=== PATIENT | female | born 1960 | race Caucasian/White ===

== ENCOUNTER 2018-02-13 09:59 | Outpatient (CLI) | payer MEDICARE ==
--- NOTE | 2018-02-13 12:30 | XRAY Report ---
Reason: PAIN IN RIGHT FOOT Procedure Date: 02/13/2018 Accession Number: [id number] / [id number] Procedure: XR - Foot 3 View RT CPT Code: FULL RESULT: EXAM: RIGHT FOOT RADIOGRAPHY EXAM DATE: 02/13/2018 11:09 AM. CLINICAL HISTORY: PAIN IN RIGHT FOOT. COMPARISON: None. TECHNIQUE: 3 views. FINDINGS: Bones: Small plantar heel spur. No fractures or bone lesions. Joints: Normal. No subluxations. Soft Tissues: Normal. No soft tissue swelling. IMPRESSION: Negative for fracture RADIA
== END 2018-02-13 10:00 | disposition home or self-care (01) ==
LOC: DI 09:59
PROVIDERS: ATTEND Physician Assistant
DX: M79.671 Pain in right foot (principal)

== ENCOUNTER 2020-09-27 16:18 | Outpatient (CLI) | payer OTHER ==
--- NOTE | 2020-09-27 19:15 | XRAY Report ---
PROCEDURE: Lumbar Spine 2 View INDICATIONS: LUMBAR RADICULOPATHY TECHNIQUE: 2 views of the lumbar spine were acquired. COMPARISON: None. FINDINGS: Bones: 5 [id number] vertebrae are present. There is normal bony alignment. No vertebral body compression fractures. No suspicious bony lesions. Mild convex right lumbar scoliosis noted. Mild s clerotic facet joints noted at L4-5 and L5-S1 Soft tissues: Overlying bowel gas pattern is normal. No suspicious soft tissue calcifications. IMPRESSION: Mild degenerative disc scoliosis and arthropathy in the lower lumbar spine. No fracture or malalignment. Reviewed by: Matthew Sheldon MD on 09/27/2020 6:14 PM MEMO Approved by: Matthew Sheldon MD on 09/27/2020 6:14 PM MEMO Station ID: [id number]
== END 2020-09-27 16:19 | disposition home or self-care (01) ==
LOC: DI.N 16:18
PROVIDERS: ATTEND Family Medicine
DX: M47.816 Spondylosis without myelopathy or radiculopathy, lumbar region (principal); M47.817 Spondylosis without myelopathy or radiculopathy, lumbosacral region; M41.86 Other forms of scoliosis, lumbar region

== ENCOUNTER 2021-01-20 07:28 | Outpatient (CLI) | payer OTHER ==
--- NOTE | 2021-01-20 09:27 | Ultrasound Report ---
PROCEDURE: Pelvic w/Transvaginal INDICATIONS: LEFT LOWER ABD PAIN, PAIN AT PFANNENSTIEL INCISION TECHNIQUE: Real-time scanning was performed of the pelvic organs, with image documentation. Additional endovagi nal scanning was necessary due to incomplete visualization of the adnexal and endometrial structures by transabdominal scanning. COMPARISON: None. FINDINGS: No pathologic free abdominal or pelvic fluid. Uterus: Surgically absent. Ovaries: Surgically absent. Other findings: Unremarkable appearance of the vaginal cuff. No free fluid or adnexal masses were vis ualized. IMPRESSION: Negative sonographic evaluation of the pelvis. Reviewed by: Jerome Merrill on 01/20/2021 8:26 AM MEMO Approved by: Jerome Merrill on 01/20/2021 8:26 AM MEMO Station ID: [id number]
== END 2021-01-20 07:29 | disposition home or self-care (01) ==
LOC: DI 07:28
PROVIDERS: ATTEND Family Medicine
DX: R10.32 Left lower quadrant pain (principal)

== ENCOUNTER 2021-02-19 09:34 | Outpatient (CLI) | payer MEDICARE ==
[2021-02-19] MEDS ORDERED: IOVERSOL 320 100 ML VIAL IVP ONE ×2 (09:45→11:32)
[2021-02-19] MEDS ORDERED: IOVERSOL 320 50 ML VIAL ONE (09:45)
[2021-02-19] MEDS ORDERED: IOVERSOL 320 50 ML VIAL PO ONE (11:32)
--- NOTE | 2021-02-19 12:49 | CT Report ---
PROCEDURE: Abdomen/Pelvis W INDICATIONS: LEFT SIDED ABDOMINAL PAIN, CHANGE IN BOWEL HABIT CONTRAST: IV CONTRAST: Optiray 320 ml: 100 PO CONTRAST: Optiray 320 ml50 TECHNIQUE: After the administration of oral and intravenous contrast, 5 mm thick sections acquired from the diap hragms to the symphysis. 5 mm thick coronal and sagittal reformats were acquired. For radiation dos e reduction, the following was used: automated exposure control, adjustment of mA and/or kV accordin g to patient size. COMPARISON: 07/14/2015 FINDINGS: Image quality: Excellent. ABDOMEN: Lung bases: Lung bases are clear. Heart size is normal. Solid organs: Liver and spleen are normal in size and enhancement. Mild diffuse hepatic steatosis. Gallbladder is unremarkable. Biliary system is non dilated. Pancreas enhances normally. No adrenal nodules. Kidneys demonstrate normal size and enhancement, without hydronephrosis. Peritoneum and bowel: Bowel loops demonstrate normal wall thickness and caliber. No free fluid or a ir. Mild sigmoid diverticulosis without evidence of diverticulitis. Nodes and vessels: No retroperitoneal or mesenteric adenopathy by size criteria. Aorta and inferior vena cava are normal in size. Miscellaneous: No ventral hernias. PELVIS: Genitourinary: Bladder wall thickness is normal. Miscellaneous: No inguinal hernias or adenopathy. Uterus is surgically absent. Bones: No suspicious bony lesions. No vertebral body compression fractures. IMPRESSION: 1. No evidence of acute abdominal process. 2. Mild sigmoid diverticulosis. 3. Mild hepatic steatosis. Reviewed by: Yassine Wright MD on 02/19/2021 12:47 PM PDT Approved by: Yassine Wright MD on 02/19/2021 12:47 PM PDT Station ID: [id number]
== END 2021-02-19 09:35 | disposition home or self-care (01) ==
LOC: DI 09:34
PROVIDERS: ATTEND Family Medicine
DX: R10.9 Unspecified abdominal pain (principal); R19.4 Change in bowel habit; K76.0 Fatty (change of) liver, not elsewhere classified; K57.30 Diverticulosis of large intestine without perforation or abscess without bleeding
CPT/HCPCS: 74177; Q9967

== ENCOUNTER 2021-05-11 12:00 | Emergency (ER) | payer MEDICARE, OTHER ==
[2021-05-11] MEDS ORDERED: SODIUM CHLORIDE 0.9% 1,000 ML IV STA (12:25)
--- NOTE | 2021-05-11 12:27 | ED Physician Documentation ---
History of Present Illness - Stated complaint Stated Complaint: WEAKNESS/CONFUSION - Chief complaint Chief Complaint: Trauma Hd/Nk - Additonal information Additional information: 60-year-old female presents the emergency department for evaluation of right- sided facial trauma, headache and reported confusion. She was working with her horse on Friday afternoon ( 3 days ago) when she was accidentally butted in the head from him. She did not lose consciousness. She is not anticoagulated. However since the accident she reports that she has had a headache has felt sleepy and tired. She often feels off balance. Some nausea but no vomiting. No history of similar in the past. She reports her's herself as a diabetic who is not yet taking medications or checking her sugars. Review of Systems Constitutional: denies: Fever, Chills Eyes: denies: Loss of vision Ears: reports: Reviewed and negative Nose: reports: Reviewed and negative Throat: reports: Reviewed and negative Cardiac: reports: Reviewed and negative Respiratory: reports: Reviewed and negative GI: reports: Nausea : denies: Dysuria, Frequency, Hesitancy Skin: reports: Other (Circumferential bruising of the right eye orbit). denies: Rash Musculoskeletal: denies: Neck pain Neurologic: reports: Confused, Headache, Head injury. denies: Numbness, Syncope, Seizure, LOC PD PAST MEDICAL HISTORY - Past Medical History Cardiovascular: High cholesterol - Past Surgical History Past Surgical History: Yes /RENTAL REPRESENTATIVE: Hysterectomy - Allergies Allergies/Adverse Reactions: Allergies Allergy/AdvReac Type Severity Reaction Status Date / Time Cephalosporins Allergy Anaphylaxis Verified 05/11/21 12:10 levofloxacin [From Levaquin] Allergy Anaphylaxis Verified 05/11/21 12:10 - Social History Does the pt smoke?: No Smoking Status: Never smoker Does the pt drink ETOH?: No Does the pt have substance abuse?: Yes - Immunizations Immunizations are current?: Yes - POLST Patient has POLST: No PD ED PE EXPANDED - General General: Alert, No acute distress, Well developed/nourished - HEENT HEENT: PERRL, Ears normal, Moist mucous membranes, Other (Ecchymosis of the right orbit and eye. Extraocular movements intact. No tenderness with palpation of the eye.) - Neck Neck: Supple w/out meningeal sx, No tenderness. No: Adenopathy - Cardiac Cardiac: Regular Rate, Radial strong equal, Femoral strong equal, Cap refill < 2 sec. No: Murmur Present - Respiratory Respiratory: Clear to ausultation kvng. No: Distress, Labored - Abdomen Abdomen: Normal Bowel sounds. No: Tender to palpation - Neuro Neuro: Alert and Oriented X 3, CNII-XII intact, Cerebellar nl, Normal finger nose, Normal speech. No: Nystagmus - GCS Verbal: Oriented Results - Vitals Vitals: Vital Signs - 24 hr 05/11/21 05/11/21 12:04 12:42 Temperature 36.2 C L Heart Rate 60 67 Respiratory 16 17 Rate Blood Pressure 133/86 H 129/80 O2 Saturation 98 100 Oxygen O2 Source Room air - Labs Labs: Laboratory Tests 05/11/21 05/11/21 12:28 12:28 WBC 5.7 RBC 4.14 L Hgb 12.7 Hct 38.7 MCV 93.5 MCH 30.7 MCHC 32.8 RDW 13.8 Plt Count 231 MPV 8.6 Neut # (Auto) 2.4 Lymph # (Auto) 2.3 Izard # (Auto) 0.7 Eos # (Auto) 0.1 Baso # (Auto) 0.0 Absolute Nucleated RBC 0.00 Nucleated RBC % 0.0 Sodium 136 Potassium 4.3 Chloride 102 Carbon Dioxide 25 Anion Gap 9.0 BUN 24 H Creatinine 0.6 Estimated GFR (MDRD) 102 Glucose 116 H Calcium 9.0 Total Bilirubin 0.5 AST 21 ALT 34 Alkaline Phosphatase 51 Total Protein 6.7 Albumin 3.9 Globulin 2.8 Albumin/Globulin Ratio 1.4 Lipase 34 - Rads (name of study) maxillo facial CT Radiology: Final report received CT head Radiology: Final report received (No acute intracranial finding. Right paranasal soft tissue swelling.) PD MEDICAL DECISION MAKING - ED course Complexity details: reviewed results, re-evaluated patient, d/w patient ED course: 60-year-old female presents emergency department for evaluation of headache dizziness and feeling fatigue as well as nausea after her horse struck her in the head 3 days ago. She does have some generalized ecchymosis to the right eye. She presents with no focal neuro deficits and had a normal gait. Vital signs were unrevealing. Screening labs showed no worrisome findings despite her reported history of uncontrolled diabetes. CT maxillofacial of the head as well as CT of the head did not show any findings of occult traumatic brain injury or orbital nasal bone fracture. Discussed that her symptoms are most consistent with a concussion. Encouraged gentle hydration and plenty of rest. She is a moderate alcohol user. I advised her to abstain from alcohol if she can safely do so. Emergent return precautions were discussed. Departure - Departure Disposition: 01 Home, Self Care Clinical Impression: Concussion Qualifiers: Encounter type: initial encounter Loss of consciousness presence/duration: without LOC Qualified Code(s): S06.0X0A - Concussion without loss of consciousness, initial encounter Facial contusion Qualifiers: Encounter type: initial encounter Qualified Code(s): S00.83XA - Contusion of other part of head, initial encounter Condition: Stable Record reviewed to determine appropriate education?: Yes Instructions: ED Head Injury Closed, ED Concussion Follow-Up: Jose Alberto Booth DO [Primary Care Provider] - Comments: Lisa were seen in the emergency department today for evaluation of headache nausea and feeling fatigued after your horse accidentally hit you in the head. We did do a CT of your head that does not show any signs of bruising or bleeding on a within the brain. The bones of your head are also without fracture. I suspect that you likely have a concussion. Most patients with concussion will heal well by allowing their brain time to rest. This means focusing on at least 8 hours of sleep at night. Avoidance of stimulants such as caffeine or alcohol if able. I do recommend Tylenol ibuprofen for discomfort. If at any point you have worsening symptoms, uncontrolled vomiting, high fevers, slurred speech or facial droop then please return immediately to the ER for second evaluation. Please discuss this ED visit with your primary care provider as soon as possible.
[2021-05-11 12:36] LABS: BASOPHILS % (AUTO) 0.5 %; EOSINOPHILS # (AUTO) 0.1 10^3/uL (0.0-0.7); EOSINOPHILS % (AUTO) 2.1 %; HCT - HEMATOCRIT 38.7 % (37.0-47.0); HGB - HEMOGLOBIN 12.7 g/dL (12.0-16.0); LYMPHOCYTES # (AUTO) 2.3 10^3/uL (1.5-3.5); LYMPHOCYTES % (AUTO) 40.9 %; MEAN CORPUSCULAR HEMOGLOBIN 30.7 pg (27.0-31.0); MEAN CORPUSCULAR HGB CONC 32.8 g/dL (32.0-36.0); MEAN CORPUSCULAR VOLUME 93.5 fL (81.0-99.0); MEAN PLATELET VOLUME 8.6 fL (7.9-10.8); MONOCYTES # (AUTO) 0.7 10^3/uL (0.0-1.0); MONOCYTES % (AUTO) 13.1 %; NEUTROPHILS # (AUTO) 2.4 10^3/uL (1.5-6.6); PLT - PLATELET COUNT 231 10^3/uL (130-450); RED BLOOD COUNT 4.14 10^6/uL (4.20-5.40); RED CELL DISTRIBUTION WIDTH 13.8 % (12.0-15.0); WHITE BLOOD COUNT 5.7 x10^3/uL (4.8-10.8)
[2021-05-11] MEDS ORDERED: ONDANSETRON 4 MG/2 ML VIAL IVP STA (12:50)
[2021-05-11 12:55] LABS: ALBUMIN 3.9 g/dL (3.2-5.5); ALBUMIN/GLOBULIN RATIO 1.4 (1.0-2.2); BILIRUBIN,TOTAL 0.5 mg/dL (0.2-1.0); CREATININE 0.6 mg/dL (0.4-1.0); POTASSIUM 4.3 mmol/L (3.5-5.0); TOTAL PROTEIN 6.7 g/dL (6.7-8.2)
--- NOTE | 2021-05-11 14:11 | CT Report ---
PROCEDURE: HEAD WO INDICATIONS: hit in head by horse; r/o ICH TECHNIQUE: Noncontrast 4.5 mm thick angled axial sections acquired from the foramen magnum to the vertex. For r adiation dose reduction, the following was used: automated exposure control, adjustment of mA and/or kV according to patient size. COMPARISON: None. FINDINGS: Image quality: Excellent. CSF spaces: Basal cisterns are patent. No extra-axial fluid collections. Ventricles are normal in size and shape. Brain: No midline shift. No intracranial masses or hemorrhage. Ca-white matter interface is norm al. Skull and face: Calvarium and visualized facial bones are intact, without suspicious lesions. Right periorbital soft tissue swelling, partially visualized. Sinuses: Visualized sinuses and mastoids are clear. IMPRESSION: No acute intracranial finding. Right paranasal soft tissue swelling. Reviewed by: Fam De La O MD on 05/11/2021 2:10 PM PST Approved by: Fam De La O MD on 05/11/2021 2:10 PM PST Station ID: [id number]
--- NOTE | 2021-05-11 14:13 | CT Report ---
PROCEDURE: MAXILLOFACIAL WO INDICATIONS: right eye bruising; r/o fx TECHNIQUE: Noncontrast 1.5 mm thick axial images acquired from the mandible through the frontal sinuses, with co pepito and sagittal reformatting. For radiation dose reduction, the following was used: automated ex posure control, adjustment of mA and/or kV according to patient size. COMPARISON: None. FINDINGS: Image quality: Excellent. Bones and teeth: Orbital ceron are intact. Sinus ceron show no fracture or deformity. Nasal bones and septum are intact. Visualized portions of the mandible demonstrate no fractures or subluxation. Zygomatic arches are intact. Pterygoid plates are intact. Visualized portions of the skull base an d auditory canals are intact. Sinuses: Paranasal sinuses are aerated, without fluid levels, mucosal thickening, or mucoceles. Mas toid air cells are aerated. Soft tissues: Right periorbital soft tissue swelling. No other edema, masses, or fluid collections. No enlarged lymph nodes. No soft tissue lacerations or debris. Vascular: Visualized vascular structures appear normal in the absence of contrast. Bony vascular fo ramina and canals are intact. IMPRESSION: Right periorbital soft tissue swelling. No orbital wall fracture. No evidence of ocular injury. Reviewed by: Fam De La O MD on 05/11/2021 2:12 PM PST Approved by: Fam De La O MD on 05/11/2021 2:12 PM PST Station ID: [id number]
[2021-05-11 14:42] VITALS: BP 129/81
== END 2021-05-11 14:47 | disposition home or self-care (01) ==
LOC: ED 12:00
DX: S06.0X0A Concussion without loss of consciousness, initial encounter (principal); S00.83XA Contusion of other part of head, initial encounter; W55.12XA Struck by horse, initial encounter
CPT/HCPCS: 36415; 80053; 83690; 85025; 96374; 99282

== ENCOUNTER 2021-06-18 13:29 | Outpatient (CLI) | payer MEDICARE ==
--- NOTE | 2021-06-18 13:54 | XRAY Report ---
PROCEDURE: Finger(s) RT INDICATIONS: RING FINGER TRIGGER/PAIN TECHNIQUE: AP hand, 2 views of the fourth finger(s) acquired. COMPARISON: None FINDINGS: Bones: No fractures or dislocations. Osteoarthritic changes are noted throughout interphalangeal timmy ints with joint space narrowing and subchondral sclerosis. Subtle radiolucency involving dorsal aspec t of fourth middle phalangeal base is seen. No suspicious bony lesions. Soft tissues: No suspicious soft tissue calcifications. IMPRESSION: Fourth digit osteoarthritis. No fracture or dislocation. Subtle radiolucency involving dorsal aspect of fourth middle phalangeal base, subtle erosion secondary to inflammatory arthropathy cannot be excl uded. Reviewed by: Rafal Patten MD on 06/18/2021 1:52 PM PST Approved by: Rafal Patten MD on 06/18/2021 1:52 PM PST Station ID: [id number]
== END 2021-06-18 13:30 | disposition home or self-care (01) ==
LOC: DI.WOS 13:29
PROVIDERS: ATTEND Physician Assistant
DX: M65.341 Trigger finger, right ring finger (principal); M19.041 Primary osteoarthritis, right hand

== ENCOUNTER 2022-05-01 08:00 | Outpatient (CLI) | payer MEDICARE | END 2022-05-01 23:59 | disposition home or self-care (01) | LOC: LAB.N 08:00 | PROVIDERS: ATTEND Registered Nurse | DX: K13.0 Diseases of lips (principal) | CPT/HCPCS: 87070; 87205 ==

== ENCOUNTER 2022-06-05 11:24 | Outpatient (CLI) | payer MEDICARE ==
--- NOTE | 2022-06-10 12:10 | Mammography Report ---
BILATERAL DIGITAL SCREENING MAMMOGRAM 3D/2D: 06/05/2022 CLINICAL: Family history of breast cancer. Routine screening. Comparison is made to exam dated: 10/30/2010 mammogram - [facility]. Both breasts are heterogeneously dense, which may obscure small masses (category c / 51-75% glandular tissue). There is a focal asymmetry in the right breast at 12 o'clock middle depth. No other significant masses, calcifications, or other findings are seen in either breast. IMPRESSION: INCOMPLETE: NEEDS ADDITIONAL IMAGING EVALUATION The focal asymmetry in the right breast is indeterminate. Additional views with possible ultrasound are recommended. Based on Tyrer-Cuzick model (a risk assessment model), the patient's lifetime risk is 24.7% and her 1 0 year risk is 10.5%. If a patient has an elevated risk, a more comprehensive evaluation should be co nsidered and/or a referral to a genetic counselor. The [place] [employer], [employer], and NCCN Guidelines advise the consideration of Breast MRI as an adjunct to screening mammo graphy in patients whose "Lifetime risk to develop breast cancer" is 20% or higher. This exam was interpreted at Station ID: [id number]. NOTE: For mammograms, a report in lay terms will be sent to the patient. Approximately 15% of breast malignancies will not be visualized mammographically. In the management of a palpable breast mass, a negative mammogram must not discourage biopsy of a clinically suspicious lesion. Electronically Signed By: Dev Hassan M.D. lc/:06/07/2022 17:02:52 ACR BI-RADS Category 0: Incomplete 3340F PARENCHYMAL PATTERN: (D) - The breast(s) demonstrate(s) heterogeneously dense fibroglandular parenchy ma. BI-RADS CATEGORY: (0) - 0 Mammo and [place] [id number] Immediate follow-up LATERALITY: (B)
== END 2022-06-05 11:25 | disposition home or self-care (01) ==
LOC: DI.N 11:24
PROVIDERS: ATTEND Family Medicine
DX: Z12.31 Encounter for screening mammogram for malignant neoplasm of breast (principal); R92.8 Other abnormal and inconclusive findings on diagnostic imaging of breast; Z80.3 Family history of malignant neoplasm of breast

== ENCOUNTER 2022-06-21 09:06 | Outpatient (CLI) | payer MEDICARE ==
--- NOTE | 2022-06-24 10:26 | Ultrasound Report ---
LIMITED ULTRASOUND OF RIGHT BREAST: 06/21/2022 CLINICAL: Patient returns today to evaluate an asymmetry in the right breast. Comparison is made to exams dated: 06/21/2022 mammogram, 06/05/2022 mammogram, and 10/30/2010 mammogram - [facility]. Color flow and real-time ultrasound of the right breast 12 o'clock region were performed. Ca scale images of the real-time examination were reviewed. There is a 0.5 cm irregular mass in the right breast at 6 o'clock middle depth. This correlates with mammography findings. There are calcifications within the mass as seen mammographically, which are more prominent than last mammogram in 2011. IMPRESSION: SUSPICIOUS OF MALIGNANCY The 0.5 cm irregular mass in the right breast is at a low suspicion for malignancy. An ultrasound-gu ided biopsy is recommended. Attention on post-clip images to ensure this corresponds to the grouped coarse heterogenous calcifica tions seen on mammogram at 6:00. There is no abnormality seen in the right breast to correspond with the mammography asymmetry finding at 12 o'clock which likely represents normal fibroglandular tissue. This exam was interpreted at Station ID: [id number]. Electronically Signed By: Dev Hassan M.D. lc/:06/21/2022 12:26:58 Ultrasound BI-RADS: 4a Low suspicion for malignancy BI-RADS CATEGORY: (4a) - Low Susp Biopsy follow-up [id number] Immediate follow-up LATERALITY: (B)
--- NOTE | 2022-06-24 10:26 | Mammography Report ---
UNILATERAL RIGHT DIGITAL DIAGNOSTIC MAMMOGRAM 3D/2D: 06/21/2022 CLINICAL: Patient returns today to evaluate a focal asymmetry in the right breast. Comparison is made to exams dated: 06/05/2022 mammogram and 10/30/2010 mammogram - [facility]. The right breast is heterogeneously dense, which may obscure small masses (category c / 51-75% glandu lar tissue). There is a focal asymmetry with grouped coarse heterogeneous calcifications in the right breast at 6 o'clock middle depth. There also is an asymmetry in the right breast middle depth superior region seen on the mediolateral oblique view only. This is less prominent. No other significant masses or calcifications are seen in the breast. IMPRESSION: INCOMPLETE: NEEDS ADDITIONAL IMAGING EVALUATION The focal asymmetry in the right breast at 6 o'clock middle depth is indeterminate. An ultrasound is recommended. The asymmetry in the right breast middle depth superior region seen on the mediolateral oblique view only is indeterminate. An ultrasound is recommended. Based on Tyrer-Cuzick model (a risk assessment model), the patient's lifetime risk is 24.7% and her 1 0 year risk is 10.5%. If a patient has an elevated risk, a more comprehensive evaluation should be co nsidered and/or a referral to a genetic counselor. The [place] [employer], [place] [employer], and NCCN Guidelines advise the consideration of Breast MRI as an adjunct to screening mammo graphy in patients whose "Lifetime risk to develop breast cancer" is 20% or higher. This exam was interpreted at Station ID: [id number]. NOTE: For mammograms, a report in lay terms will be sent to the patient. Approximately 15% of breast malignancies will not be visualized mammographically. In the management of a palpable breast mass, a negative mammogram must not discourage biopsy of a clinically suspicious lesion. Electronically Signed By: Dev Hassan M.D. lc/:06/21/2022 12:23:31 ACR BI-RADS Category 0: Incomplete 3340F PARENCHYMAL PATTERN: (D) - The breast(s) demonstrate(s) heterogeneously dense fibroglandular parenchy ma. BI-RADS CATEGORY: (0) - 0 Ultrasound [id number] Immediate follow-up LATERALITY: (B)
== END 2022-06-21 09:07 | disposition home or self-care (01) ==
LOC: DI 09:06
PROVIDERS: ATTEND Family Medicine
DX: N63.15 Unspecified lump in the right breast, overlapping quadrants (principal)

== ENCOUNTER 2022-07-11 09:24 | Outpatient (CLI) | payer MEDICARE ==
[2022-07-11] MEDS ORDERED: LIDOCAINE-MPF 1% 5 ML VIAL ONE (09:47)
[2022-07-11] MEDS ORDERED: LIDOCAINE 1%-EPI 1:100000 20 ML MDV ONE (09:47)
--- NOTE | 2022-07-12 15:29 | Ultrasound Report ---
LIMITED ULTRASOUND OF RIGHT BREAST: 07/11/2022 CLINICAL: Right breast mass. Comparison is made to exams dated: 06/21/2022 ultrasound, 06/21/2022 mammogram, 06/05/2022 mammogram, a nd 10/30/2010 mammogram - [facility]. Real-time ultrasound of the right breast 6 o'clock region was performed. The abnormality described on prior ultrasound is not reproduced. Both myself and the research laboratory technician scan the patient in the prior finding was not identified. IMPRESSION: PROBABLY BENIGN Since the ultrasound finding is not reproduced, 6 month follow-up will be performed to ensure no felder ge. Additionally the calcifications described on diagnostic and screening mammogram also apear to hav e been present on a 2006 mammogram. A follow-up right mammogram and an ultrasound in 6 months is recommended to demonstrate stability. This exam was interpreted at Station ID: [id number]. Electronically Signed By: Manjeet Joshi M.D. acr/:07/11/2022 14:03:04 Ultrasound BI-RADS: 3 Probably benign BI-RADS CATEGORY: (3) - 3 Mammo and US [id number] 6 month follow-up LATERALITY: (R)
== END 2022-07-11 09:25 | disposition home or self-care (01) ==
LOC: DI 09:24
PROVIDERS: ATTEND Family Medicine
DX: R92.8 Other abnormal and inconclusive findings on diagnostic imaging of breast (principal)

== ENCOUNTER 2022-07-16 08:00 | Outpatient (CLI) | payer MEDICARE ==
--- NOTE | 2022-07-16 16:09 | XRAY Report ---
PROCEDURE: Hand 3 View RT INDICATIONS: RIGHT HAND PAIN TECHNIQUE: 3 views of the hand(s) acquired. COMPARISON: None FINDINGS: Bones: No fractures or dislocations. No suspicious bony lesions. Mild polyarticular osteoarthritis. Soft tissues: No suspicious soft tissue calcifications. IMPRESSION: No fracture. No acute osseous lesion. If symptoms and/or clinical concern for pathology persists, fur ther assessment with repeat plain film radiographs (7-10 days) or advanced imaging (CT, MR, bone scan ) should be considered. Reviewed by: Cornelia Richards MD, PhD on 07/16/2022 4:07 PM [facility] Approved by: Cornelia Richards MD, PhD on 07/16/2022 4:07 PM [facility] Station ID: [id number]
== END 2022-07-16 23:59 | disposition home or self-care (01) ==
LOC: DI.WOS 08:00
PROVIDERS: ATTEND Physician Assistant Surgical
DX: M19.041 Primary osteoarthritis, right hand (principal)

== ENCOUNTER 2022-07-24 06:46 | Day surgery (SDC) | payer MEDICARE ==
[2022-07-24] MEDS ORDERED: LACTATED RINGERS 1,000 ML IV ONE (07:10)
--- NOTE | 2022-07-24 08:05 | ANESTHESIA ---
Pre-Anesthesia VS, & Labs - Diagnosis screening, GERD - Procedure colonoscopy, EGD Vital Signs: Temp Pulse Resp BP Pulse Ox O2 Flow Rate 36.4 C L 76 18 131/90 H 96 0 07/24/22 07:10 07/24/22 07:10 07/24/22 07:10 07/24/22 07:10 07/24/22 07:10 07/24/22 07:10 Height: 4 ft 10 in Weight (kg): 65.5 kg Body Mass Index: 30.2 BMI Classification: Obese - NPO Other (prep as directed) - Is Patient ?: No - Lab Results Current Lab Results: Laboratory Tests 07/24/22 07:18: POC Whole Bld Glucose 149 H Home Medications and Allergies Home Medications: Ambulatory Orders Albuterol Sulfate [Proventil Hfa] 6.7 gm IH DAILY PRN 07/23/22 Albuterol Sulfate [Proventil Hfa] 6.7 gm IH DAILY PRN 07/23/22 Allergies/Adverse Reactions: Allergies Allergy/AdvReac Type Severity Reaction Status Date / Time Cephalosporins Allergy Anaphylaxis Verified 07/24/22 07:17 levofloxacin [From Levaquin] Allergy Anaphylaxis Verified 07/24/22 07:17 Anes History & Medical History - Anesthetic History Anesthesia Complications: reports: No previous complications - Medical History Cardiovascular: reports: High cholesterol Pulmonary: reports: Shortness of breath Gastrointestinal: reports: GERD Urinary: reports: None Musculoskeletal: reports: None Endocrine/Autoimmune: reports: Type 2 diabetes Smoking Status: Current some day smoker - Surgical History Gynecologic: reports: Hysterectomy Exam General: Alert, Oriented x3 Dental: WNL, Other (capped, intact) Mouth Opening: Greater than 4 Fingerbreadths Neck Mobility: Normal Mallampati classification: II Thyromental Distance: greater than 6 cm Respiratory: Lungs clear Cardiovascular: Regular rate Plan Anesthesia Type: Total IV Consent for Procedure(s) Verified and Reviewed: Yes Code Status: Attempt Resuscitation ASA classification: 2-Mild systemic disease Is this case an emergency?: No
[2022-07-24] MEDS ORDERED: LACTATED RINGERS 950 ML IV ONE ×2 (08:11)
[2022-07-24] MEDS ORDERED: LIDOCAINE-MPF 2% 5 ML VIAL ONE (08:38)
[2022-07-24] MEDS ORDERED: PROPOFOL 500 MG/50 ML 500 MG/50 ML VIAL ONE (08:38)
[2022-07-24 09:24] VITALS: BP 127/84
--- NOTE | 2022-07-24 10:19 | ANESTHESIA POST OP EVALUATION ---
Anesthesia Post Eval - Post Anesthesia Eval Vitals: Last Vital Signs Temp 36.5 C 07/24/22 09:23 Pulse 74 07/24/22 09:23 Resp 16 07/24/22 09:23 BP 127/84 H 07/24/22 09:23 Pulse Ox 98 07/24/22 09:23 O2 Flow Rate 0 07/24/22 07:10 CV Function Including HR & BP: Stable Pain Control: Satisfactory Nausea & Vomiting: Negative Mental Status: Baseline Respiratory Status: Airway Patent Hydration Status: Satisfactory Anesthesia Complications: None
== END 2022-07-24 06:47 | disposition home or self-care (01) ==
LOC: SDS 06:46
PROVIDERS: ATTEND Surgery
DX: Z12.11 Encounter for screening for malignant neoplasm of colon (principal); K57.30 Diverticulosis of large intestine without perforation or abscess without bleeding; K64.8 Other hemorrhoids; K29.70 Gastritis, unspecified, without bleeding; K21.9 Gastro-esophageal reflux disease without esophagitis; E11.9 Type 2 diabetes mellitus without complications; Z86.010 Personal history of colon polyps; Z87.891 Personal history of nicotine dependence; E66.9 Obesity, unspecified; Z68.30 Body mass index [BMI] 30.0-30.9, adult; F17.200 Nicotine dependence, unspecified, uncomplicated
CPT/HCPCS: 43235; G0105; J7120

== ENCOUNTER 2022-10-22 13:13 | Outpatient (CLI) | payer MEDICARE ==
[2022-10-22] MEDS ORDERED: ALBUTEROL 1 PUFF INH STA (15:12)
== END 2022-10-22 13:14 | disposition home or self-care (01) ==
LOC: RT 13:13
PROVIDERS: ATTEND Family Medicine
DX: J44.9 Chronic obstructive pulmonary disease, unspecified (principal); Z72.0 Tobacco use
CPT/HCPCS: 94060

== ENCOUNTER 2022-12-17 12:40 | Outpatient (CLI) | payer MEDICARE ==
--- NOTE | 2022-12-17 16:04 | XRAY Report ---
PROCEDURE: Elbow 3 View LT INDICATIONS: LT ELBOW CONTUSION TECHNIQUE: 3 views of the elbow were acquired. COMPARISON: None. FINDINGS: Bones: No fractures or dislocations. No suspicious bony lesions. Soft tissues: No effusion. No suspicious soft tissue calcifications or masses. IMPRESSION: No fracture. No osseous lesion. If symptoms and/or clinical concern for pathology persists, further a ssessment with repeat plain film radiographs (7-10 days) or advanced imaging (CT, MR, bone scan) shou ld be considered. Reviewed by: Cornelia Richards MD, PhD on 12/17/2022 4:03 PM PDT Approved by: Cornelia Richards MD, PhD on 12/17/2022 4:03 PM PDT Station ID: [id number]
--- NOTE | 2022-12-17 16:04 | XRAY Report ---
PROCEDURE: Shoulder 3 View LT INDICATIONS: L SHOULDER STRAIN TECHNIQUE: 3 views of the shoulder were acquired. COMPARISON: None. FINDINGS: Bones: No fractures or dislocations. No suspicious bony lesions. Visualized ribs appear intact. Soft tissues: No suspicious soft tissue calcifications. IMPRESSION: No fracture. No osseous lesion. If symptoms and/or clinical concern for pathology persists, further a ssessment with repeat plain film radiographs (7-10 days) or advanced imaging (CT, MR, bone scan) shou ld be considered. Reviewed by: Cornelia Richards MD, PhD on 12/17/2022 4:03 PM PDT Approved by: Cornelia Richards MD, PhD on 12/17/2022 4:03 PM PDT Station ID: [id number]
== END 2022-12-17 12:41 | disposition home or self-care (01) ==
LOC: DI 12:40
PROVIDERS: ATTEND Family Medicine
DX: S46.912A Strain of unspecified muscle, fascia and tendon at shoulder and upper arm level, left arm, initial encounter (principal); S50.02XA Contusion of left elbow, initial encounter

== ENCOUNTER 2023-04-08 09:53 | Outpatient (CLI) | payer MEDICARE ==
--- NOTE | 2023-04-08 12:45 | XRAY Report ---
PROCEDURE: Cervical Spine Complete INDICATIONS: RT CERVICAL RADICULOPATHY TECHNIQUE: 5 views of the cervical spine acquired. COMPARISON: None. FINDINGS: Bones: No fractures or dislocations to the C7 level. Trace anterolisthesis C3-4 and mild facet arth ropathy at this level. Mild disc height loss at C5-6 and C6-7 with mild to moderate endplate spurs. Oblique images demonstrate moderate right-sided foraminal narrowing at C3-4, C5-6, and mildly at C6-7 . There is moderate left-sided foraminal narrowing and C5-6. Soft tissues: No prevertebral soft tissue swelling. IMPRESSION: 1. Endplate spurring at multiple levels causes bilateral foraminal narrowing as described above. 2. Mild facet arthropathy and trace C3-4 anterolisthesis. Reviewed by: Inna Cage MD on 04/08/2023 12:44 PM PST Approved by: Inna Cage MD on 04/08/2023 12:44 PM PST Station ID: [id number]
== END 2023-04-08 09:54 | disposition home or self-care (01) ==
LOC: DI 09:53
PROVIDERS: ATTEND Family Medicine
DX: M47.22 Other spondylosis with radiculopathy, cervical region (principal); M43.12 Spondylolisthesis, cervical region; M48.02 Spinal stenosis, cervical region

== ENCOUNTER 2023-12-20 14:44 | Outpatient (CLI) | payer MEDICARE | END 2023-12-20 23:59 | disposition critical access hospital (66) | LOC: EMS 14:44 | DX: R06.02 Shortness of breath (principal); R45.1 Restlessness and agitation; F10.90 Alcohol use, unspecified, uncomplicated | CPT/HCPCS: A0425; A0429; A0999 ==

== ENCOUNTER 2023-12-20 15:23 | Emergency (ER) | payer MEDICARE, OTHER ==
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
== END 2023-12-20 15:46 | disposition home or self-care (01) ==
LOC: EDUNIT# → ED 15:23
DX: Z53.29 Procedure and treatment not carried out because of patient's decision for other reasons (principal); E11.9 Type 2 diabetes mellitus without complications; E78.00 Pure hypercholesterolemia, unspecified; F17.200 Nicotine dependence, unspecified, uncomplicated
CPT/HCPCS: 99282; 99283

== ENCOUNTER 2023-12-20 17:38 | Outpatient (CLI) | payer MEDICARE | END 2023-12-20 17:39 | disposition home or self-care (01) | LOC: LAB 17:38 | PROVIDERS: ATTEND Emergency Medicine | DX: Z53.9 Procedure and treatment not carried out, unspecified reason (principal) ==